=== PATIENT | female | born 1945 | race Caucasian/White ===

== ENCOUNTER 2017-08-13 11:52 | Observation (INO) | payer OTHER ==
[2017-08-13] MEDS ORDERED: ASPIRIN EC 81 MG TAB PO ONE (12:57)
[2017-08-13] MEDS ORDERED: PANTOPRAZOLE 40 MG INJ IVP ONE (12:57)
[2017-08-13] MEDS ORDERED: SODIUM CHLORIDE 0.9% 10ML INJ IV PRN (12:57)
[2017-08-13] MEDS ORDERED: METOPROLOL TAR 25 MG TAB PO ONE (12:57)
[2017-08-13] MEDS: NITROGLYCERIN 1 GM PKT TD SCH ×2 (13:11→18:00)
[2017-08-13 13:29] LABS: Absolute Lymphocytes (CBC) 1.7 K/uL (0.7-4.9); Absolute Monocytes 0.9 K/uL (0.1-1.3); Absolute Neutrophil 8.3 K/uL (1.8-8.0); Basophils % 0.5 % (0-1.3); Eosinophils % 3.3 % (0-4.4); Hematocrit 47.2 % (36.0-45.0); Lymphocytes % 15.3 % (15.3-44.8); MCH 29.8 pg (27.0-35.0); MCV 90.3 fL (80-100); MPV 9.2 fL (7.6-11.3); Monocytes % 7.6 % (3.3-12.3); RBC Red Blood Cell Count 5.22 M/uL (3.86-4.86)
[2017-08-13 13:32] LABS: Protime INR 1.06
[2017-08-13 13:39] LABS: Potassium 4.3 mEq/L (3.6-5.0)
[2017-08-13 13:42] LABS: Albumin 3.9 g/dL (3.2-5.5); Bilirubin Total 0.7 mg/dL (0.3-1.2); Protein, Total 7.1 g/dL (6.0-8.3)
[2017-08-13 13:47] LABS: CKMB Creatine Kinase MB 1.7 ng/ml (0.3-4.0)
[2017-08-13 14:17] LABS: Thyroid Stimulating Hormone 2.83 uIU/mL (0.34-5.60)
[2017-08-13 14:49] LABS: Urine Appearance CLEAR; Urine Bilirubin NEGATIVE (NEG); Urine Blood NEGATIVE (NEG); Urine Color YELLOW; Urine Glucose NEGATIVE (NEG); Urine Protein NEGATIVE (NEG); Urine Specific Gravity 1.015 (1.005-1.030); Urine Urobilinogen 0.2 mg/dL (0.2-1.0)
[2017-08-13] MEDS ORDERED: Morphine 2 MG/2 ML SYR IV PRN (14:56)
[2017-08-13] MEDS ORDERED: ONDANSETRON 4 MG/2 ML VIAL IV PRN (14:57)
[2017-08-13 14:59] LABS: Urine Microscopic Reflex NO UMIC
--- NOTE | 2017-08-13 14:59 | EKG ---
Test Date: 2017-08-13 Test Time: 12:48:54 Process Control Supervisor: CLEESTE MEASUREMENT RESULTS: Intervals: Rate: 89 MS: 158 QRSD: 86 QT: 386 QTc: 469 [place]: P: 55 MS: 158 QRS: 41 T: 44 INTERPRETIVE STATEMENTS: Normal sinus rhythm Cannot rule out Anterior infarct, age undetermined Abnormal ECG Compared to ECG 01/06/2013 15:51:20 Myocardial infarct finding now present Electronically Signed On 08-13-17 14:58:54 CDT by Zeke Tamayo
--- NOTE | 2017-08-13 15:06 | RAD REPORT ---
EXAM DESCRIPTION: RAD - Chest Single View - 08/13/2017 2:34 pm CLINICAL HISTORY: Chest pain COMPARISON: December 2012 TECHNIQUE: AP portable chest image was obtained 1423 hours . FINDINGS: Low lung volumes are noted. No peripheral mass or consolidation. Heart size is normal rang e. Central vasculature is mildly prominent. Trachea is midline. No measurable pleural effusion and no pneumothorax. No gross bony abnormality seen. No acute aortic findings suspected. IMPRESSION: No focal mass or consolidation. Central vasculature and lung markings are mildly prominent. Significant failure or volume overload do ubtful.
[2017-08-13] MEDS: METOPROLOL TAR 25 MG TAB PO SCH (21:00)
[2017-08-14] MEDS: NITROGLYCERIN 1 GM PKT TD SCH
--- NOTE | 2017-08-14 01:40 | HP ---
Date of Admission: 08/13/2017 Chief Complaint: Chest pain. History Of Present Illness: This is a 71-year-old female patient, who came into office today with co mplaints of chest pain. The patient started to have this complaints of chest pain on Saturday of last week, so that is like 4-5 days ago she started to have this chest pain, describing her chest pain as heaviness, tightness, pressure type of feeling in the center of her chest in the retrosternal area. No aggravating or relieving factor noted. No radiation of pain. The patient reported that the pain is more or less continuous. She tried taking aspirin, Zantac and none of those medication helped her . Denies any acid reflux feeling. No heartburn, indigestion. No trouble swallowing. No abdominal pain, nausea, vomiting. Feels like she may have low shortness of breath with this. No diaphoresis. No fever. No expectoration. No hemoptysis. After the patient was evaluated at the office, aston n was made to admit her to the hospital for further evaluation and management of this problem. Allergies: TO CEPHALEXIN CAUSING CRAWLING TYPE OF SENSATION UNDER SKIN AND DEMEROL CAUSING SPINNING SENSATION. Medications: Caltrate plus D 1 tablet 2 times a day, Centrum Silver 1 tablet daily, Flonase nasal sp ray 1 spray each nostril 2 times a day, losartan 50 mg p.o. daily, Zantac 150 mg daily as needed. Review of Systems: Cardiovascular: As mentioned above. All other systems reviewed and negative. Past Medical History: Significant for hypertension, osteoarthritis at multiple sites, fatty liver di sease, hyperlipidemia, type 2 diabetes mellitus, gastroesophageal reflux disease, allergic rhinitis. Past Surgical History: Hysterectomy and breast biopsy. Family History: Significant for hypertension, congestive heart failure, coronary artery disease, col on cancer. Social History: Negative for smoking or alcohol use. Physical Examination: Vital Signs: When she came into office today, height 65 inches, weight 239 pounds, blood pressure 14 6/80, pulse 91, respiratory rate 16, temperature 98 degrees Fahrenheit. General: Awake, alert, oriented, not in distress. HEENT: Head atraumatic, normocephalic. Conjunctivae nonerythematous. Sclerae white. Mouth, no thr ush or edema noted. Ears/Nose, no mass, lesion, discharge noted. Neck: Supple. No JVD, lymph nodes, bruit, thyromegaly noted. Lungs: Bilateral good equal air entry. Clear to auscultation. No rhonchi. No rales. Heart: Normal heart sounds, no murmur or gallop. Abdomen: Soft, bowel sounds normal. No guarding, rigidity, tenderness, mass, hepatosplenomegaly, di stention, or bruit noted. Extremities: No leg edema. No calf tenderness. Skin: No rash, ulcer, cellulitis. Lymphatics: No lymph node enlargement in neck, supraclavicular, infraclavicular region. Neuro: No focal neurological deficit. Chest: Unremarkable. External Genitalia: Deferred. Rectal: Deferred. Laboratory Data: White count 11.3, hemoglobin 15.6, platelets 200. PT, PTT normal. Sodium 137, pot assium 4.3, chloride 104, bicarb 26, BUN 18, creatinine 0.94, glucose 104. Liver function tests unre markable. BNP 31. TSH 2.83. Troponin less than 0.03. Urinalysis negative. Chest x-ray; no acute cardiopulmonary changes. EKG; normal sinus rhythm, no acute ST-T wave changes. Impression: 1.Chest pain. 2.Hypertension. 3.Hyperlipidemia. 4.Type 2 diabetes mellitus. 5.Osteoarthritis, multiple sites. 6.Gastroesophageal reflux disease. 7.Fatty liver disease. Plan: Admit the patient to hospital for further evaluation and management of this problem. We will go ahead and get serial cardiac enzymes. Home medications will be continued per order. We will give aspirin, IV Protonix. Nitroglycerin paste was ordered for her and metoprolol was started. Consult Cardiology. We will get echo with Doppler and Cardiolite stress test for tomorrow and I will also ge t abdominal ultrasound in the morning. Details and plan of treatment discussed with the patient. De tails were discussed with telephone installer, Dr. Tamayo. AQUILES/MODL Voice ID: [id number]
[2017-08-14] MEDS ORDERED: REGADENOSON 0.4 MG/5 ML SYR IV ONE (08:23)
[2017-08-14] MEDS ORDERED: HOME MED 1 EA UNK (Losartan Potassium [Losartan Potassium] 1 TAB) PO SCH (09:00)
[2017-08-14] MEDS ORDERED: PANTOPRAZOLE 40 MG INJ IVP SCH (09:00)
[2017-08-14] MEDS ORDERED: HOME MED 1 EA UNK (Ranitidine [Zantac*] 150 MG) PO SCH (09:00)
[2017-08-14] MEDS ORDERED: CALCIUM CARBONATE PO SCH (09:00)
[2017-08-14] MEDS ORDERED: ASPIRIN EC 81 MG TAB PO SCH (09:00)
[2017-08-14] MEDS ORDERED: VITAMIN D3 PO SCH (09:00)
[2017-08-14] MEDS ORDERED: HOME MED 1 EA UNK (Vitamin E [Vitamin E] 1,000 UNIT) PO SCH (09:00)
--- NOTE | 2017-08-14 09:21 | RAD REPORT ---
EXAM DESCRIPTION: US - Abdomen Exam Complete - 08/14/2017 7:42 am CLINICAL HISTORY: Chest pain, abdominal pain COMPARISON: None. FINDINGS: Gallbladder size is normal. No gallstones, wall thickening or pericholecystic fluid. Commo n bile duct is normal with no common duct stone identified. Liver and spleen are normal size. Liver s hows a coarse, increased echogenicity with poor sonographic penetrance. This is a pattern typical for fatty infiltration the limits assessment of focal liver lesions. No liver lesions are suspected. No focal splenic lesion. Pancreas is grossly normal but partially obscured by bowel. No hydronephrosis or suspicious mass in either kidney. A 3 x 1.5 cm cystic structure is present lower pole left kidney. This is favored to be a cyst rather than dilated calyx. Aorta is normal is size. No ascites or bulky lymphadenopathy. IMPRESSION: No gallbladder or biliary tree abnormality. Diffuse fatty infiltration of the liver. This limits ability to detect liver lesions. Pancreas is grossly normal but too obscured by bowel gas for complete assessment. Concerns for a panc reatic process can be addressed with contrast CT imaging.
[2017-08-14] MEDS: METOPROLOL TAR 25 MG TAB PO SCH (09:34)
--- NOTE | 2017-08-14 10:00 | RAD REPORT ---
EXAM DESCRIPTION: NM - Rest Stress Cardiac Imaging - 08/14/2017 9:48 am CLINICAL HISTORY: Chest pain COMPARISON: None. TECHNIQUE: The patient was administered 11 mCi of Tc 99m Sestamibi prior to resting SPECT imaging of the heart. The patient was then administered 31.2 mCi of Tc 99m Sestamibi following exercise or phar macologic stress. Multiplanar SPECT images were reviewed. FINDINGS: The end diastolic volume is 67 ml, the end systolic volume is 25 ml, and the ejection frac tion is 63 %. No stress-induced ischemic change seen. There is thinning at the apex that is believed to be normal v ariant for the patient rather than scarring. No measurable area of scarred left ventricular myocardiu m. IMPRESSION: No stress-induced ischemia or measurable area of scarring. Ventricular volumes and ejection fraction are normal range.
--- NOTE | 2017-08-14 10:13 | TREADPHA ---
DX: CHEST PAIN Date of Study: 08/14/2017 Ht: 5 5 Wt: 239 lb 0 oz Consulting Physician: JACKIE MEDICATIONS: ASPIRIN, ZOFRAN, LOPRESSOR, PROTONIX HISTORY: 71 YEAR OLD FEMALE HERE FOR CHEST PAIN. HISTORY OF HYPERTENSION. PHYSICIAL EXAMINATION: RESTING B.P.: 123/60 RESTING H.R.: 76 RESTING EKG: NORMAL PROTOCOL: LEXISCAN EXERCISE TIME: 3:30 B.P. AT PEAK STRESS: 76 IMPRESSION: LEXISCAN STRES TEST PERFORMED. CARDIOLITE INJECTED PER PROTOCOL. NO ARRHYTHMIAS. COMPLAINTS OF MID STERNAL HEAVINESS, FIVE OUT OF TEN ON PAIN SCALE DURING STRESS TEST WITH RELIEF STARTING POST TEST. SEE NUCLEAR MEDICINE REPORT. NON-DIAGNOSTIC ELECTROCARDIOGRAM WITH LEXISCAN STRESS.
[2017-08-14 11:17] LABS: A1c Component 0.63 mg/dL; Hemoglobin A1c 5.8 % (4-6.0)
--- NOTE | 2017-08-14 15:48 | ECHO ---
HEIGHT: 5 ft 5 in WEIGHT: 239 lb 0 oz DATE OF STUDY: 08/14/[address]: Zaheer Alas MD 2-DIMENSIONAL: YES M.MODE: YES DOPPLER: YES COLOR FLOW: YES TDS: YES PORTABLE: NO DEFINITY: NO BUBBLE STUDY: NO DIAGNOSIS: CHEST PAIN CARDIAC HISTORY: CATHERIZATION: NO SURGERY: NO PROSTHETIC VALVE: NO PACEMAKER: NO MEASUREMENTS (cm) DIASTOLIC (NORMALS) SYSTOLIC (NORMALS) IVSd 1.1 (0.6-1.2) LA Diam 3.2 (1.9-4.0) LVEF 74% LVIDd 4.2 (3.5-5.7) LVIDs 2.4 (2.0-3.5) %FS 43% LVPWd 1.3 (0.6-1.2) Ao Diam 3.2 (2.0-3.7) 2 DIMENSIONAL ASSESSMENT: RIGHT ATRIUM: NORMAL LEFT ATRIUM: NORMAL RIGHT VENTRICLE: NORMAL LEFT VENTRICLE: NORMAL TRICUSPID VALVE: NORMAL MITRAL VALVE: NORMAL PULMONIC VALVE: NORMAL AORTIC VALVE: NORMAL PERICARDIAL EFFUSION: NONE AORTIC ROOT: NORMAL LEFT VENTRICULAR WALL MOTION: NORMAL. DOPPLER/COLOR FLOW: NORMAL COMMENTS: NORMAL 2D ECHO WITH DOPPLER. TECHNOLOGIST: SHARATH KING
--- NOTE | 2017-08-15 18:50 | DS ---
Date of Discharge: 08/14/2017 Subjective: The patient was seen this morning for followup. She denied any chest pain complaints at all, and her symptoms that she presented with has completely resolved. Objective: Vital Signs: Reviewed. HEENT: Unremarkable. Lungs: Clear to auscultation. Heart: Sounds normal. Abdomen: Soft, bowel sounds normal. No guarding, rigidity, tenderness, or distention. Extremities: No leg edema. Hospital Course: This is a 71-year-old female patient who was admitted to hospital after she presented to office yesterday with chest pain complaint. Please see dictated H and P for more information. The patient was evaluated at the office. She was admitted to the hospital. Further evaluation in the hospital revealed normal cardiac enzymes, and MT was ruled out. CBC, chemistry were unremarkable. Today, the patient had an echocardiogram done, abdominal ultrasound, and stress test. Her ultrasound was unremarkable, echocardiogram was unremarkable, and stress test was negative for stress-induced ischemia. Yesterday, after she was admitted to hospital, she was given aspirin, IV Protonix, and nitro paste. Cardiology consultation was obtained. Her pain has completely resolved. We believe that her pain was atypical in nature, and I have requested her to follow up with her fieldwork coordinator, Dr. Wheeler, for consideration of EGD procedure, and the patient was advised to schedule her own appointment with Dr. Wheeler in next couple of weeks. The patient was also advised to come and see me for a followup at my office in 2 weeks. Discharge Medications: Continue all prior home medications except stop Zantac and start pantoprazole 40 mg p.o. daily 30 minutes before breakfast. Final Diagnoses: 1. Chest pain. 2. Hypertension. 3. Hyperlipidemia. 4. Type 2 diabetes mellitus. 5. Osteoarthritis, multiple sites. 6. Gastroesophageal reflux disease. 7. Fatty liver disease. AQUILES/MODL Voice ID: [id number] Report ID: [id number] LUCITA
== END 2017-08-14 15:35 | disposition home or self-care (01) ==
LOC: 2ND 12:10
PROVIDERS: ADMIT Internal Medicine; ATTEND Internal Medicine
DX: R07.9 Chest pain, unspecified (principal); K21.9 Gastro-esophageal reflux disease without esophagitis; I10 Essential (primary) hypertension; M19.90 Unspecified osteoarthritis, unspecified site; E78.5 Hyperlipidemia, unspecified; E11.9 Type 2 diabetes mellitus without complications
CPT/HCPCS: 36415; 71045; 76700; 78452; 80053; 81003; 82550; 82553; 83036; 83735; 83880; 84443; 84484; 85025; 85610; 85730; 93005; 93017; 93306; A9500; C9113; G0378; G0379; J2270; J2405; J2785

== ENCOUNTER 2018-11-22 03:03 | Emergency (ER) | payer OTHER ==
[2018-11-22] MEDS ORDERED: HYDROCODONE/APAP 5/325 MG TAB ONE (03:43)
--- NOTE | 2018-11-22 03:50 | EDPHYS ---
Physician Documentation [facility] Name: Nathaly Mclaughlin Age: 72 yrs Sex: Female : 1945 Arrival Date: 11/22/2018 Time: 03:05 Bed 7 Private MD: ED Physician Jorge Roy HPI: 11/22 03:44 This 72 yrs old Female presents to ER via Ambulatory with complaints of Rash gs - Possible Shingles. 03:44 The rash is located on the right lateral posterior chest and right lateral anterior gs chest. The rash can be described as crusted, papular. Onset: The symptoms/episode began/occurred 3 week(s) ago. Associated signs and symptoms: Pertinent positives: Pain. Severity of symptoms: At their worst the symptoms were severe in the emergency department the symptoms are unchanged. The patient has not experienced similar symptoms in the past. The patient has been recently seen by a physician: with similar presenting complaints, steroids. Historical: - Allergies: 03:29 Keflex; bb - Home Meds: 03:29 losartan oral oral [Active]; bb - PMHx: 03:29 Hypertension; bb - PSHx: 03:29 Hysterectomy; bb - Immunization history:: Adult Immunizations up to date. - Social history:: Smoking status: Patient/guardian denies using tobacco. - Ebola Screening: : No symptoms or risks identified at this time. ROS: 03:44 All other systems are negative. gs Exam: 03:44 Head/Face: Normocephalic, atraumatic. Eyes: Pupils equal round and reactive to light, gs extra-ocular motions intact. Lids and lashes normal. Conjunctiva and sclera are non-icteric and not injected. Cornea within normal limits. Periorbital areas with no swelling, redness, or edema. ENT: Nares patent. No nasal discharge, no septal abnormalities noted. Tympanic membranes are normal and external auditory canals are clear. Oropharynx with no redness, swelling, or masses, exudates, or evidence of obstruction, uvula midline. Mucous membranes moist. Neck: Trachea midline, no thyromegaly or masses palpated, and no cervical lymphadenopathy. Supple, full range of motion without nuchal rigidity, or vertebral point tenderness. No Meningismus. Chest/axilla: Normal chest wall appearance and motion. Nontender with no deformity. No lesions are appreciated. Cardiovascular: Regular rate and rhythm with a normal S1 and S2. No gallops, murmurs, or rubs. Normal PMI, no JVD. No pulse deficits. Respiratory: Lungs have equal breath sounds bilaterally, clear to auscultation and percussion. No rales, rhonchi or wheezes noted. No increased work of breathing, no retractions or nasal flaring. Abdomen/GI: Soft, non-tender, with normal bowel sounds. No distension or tympany. No guarding or rebound. No evidence of tenderness throughout. Back: No spinal tenderness. No costovertebral tenderness. Full range of motion. MS/ Extremity: Pulses equal, no cyanosis. Neurovascular intact. Full, normal range of motion. Neuro: Awake and alert, GCS 15, oriented to person, place, time, and situation. Cranial nerves II-XII grossly intact. Motor strength 5/5 in all extremities. Sensory grossly intact. Cerebellar exam normal. Normal gait. 03:44 Constitutional: The patient appears alert, awake. 03:44 Skin: rash a moderate rash is noted, rash can be described as papular, vesicular, zoster. Vital Signs: 03:29 BP 163 / 100; Pulse 88; Resp 16 S; Temp 98.1(O); Pulse Ox 96% on R/A; Weight 113.85 kg bb (R); Height 5 ft. 5 in. (165.10 cm) (R); Pain 9/10; 04:01 BP 141 / 81; Pulse 71; Resp 16; Pulse Ox 96% on R/A; ak1 03:29 Body Mass Index 41.77 (113.85 kg, 165.10 cm) bb MDM: 03:38 Patient medically screened. gs 03:44 Data reviewed: vital signs, nurses notes. Response to treatment: the patient's symptoms gs have mildly improved after treatment. Administered Medications: 03:45 Drug: [place] 5 mg-325 mg 1 tabs Route: PO; ak1 04:01 Follow up: Response: No adverse reaction; Medication administered at discharge. ak1 Disposition: 11/22/18 03:49 Discharged to Home. Impression: Zoster [herpes zoster]. - Condition is Stable. - Discharge Instructions: Shingles, [id number]. - Prescriptions for Valtrex 1 g Oral Tablet - take 1 tablet by ORAL route every 8 hours for 7 days; 21 tablet. Tylenol- Codeine #4 300-60 mg Oral Tablet - take 1 tablet by ORAL route every 6 hours As needed; 10 tablet. - Medication Reconciliation Form, Thank You Letter, Antibiotic Education, Prescription Opioid Use form. - Follow up: Private Physician; When: 2 - 3 days; Reason: Re-evaluation by your physician. Signatures: Raquel Reid RN RN bb Kayleigh Gama RN RN ak1 Jorge Roy MD MD gs Corrections: (The following items were deleted from the chart) 04:05 03:49 11/22/2018 03:49 Discharged to Home. Impression: Zoster [herpes zoster]. ak1 Condition is Stable. Forms are Medication Reconciliation Form, Thank You Letter, Antibiotic Education, Prescription Opioid Use. Follow up: Private Physician; When: 2 - 3 days; Reason: Re-evaluation by your physician. gs
--- NOTE | 2018-11-22 03:50 | ER ---
Nurse's Notes [facility] Name: Nathaly Mclaughlin Age: 72 yrs Sex: Female : 1945 Arrival Date: 11/22/2018 Time: 03:05 Bed 7 Private MD: Diagnosis: Zoster [herpes zoster] Presentation: 11/22 03:27 Presenting complaint: Patient states: she started having pain on Saturday then bb she broke out in a rash she went to her PCP who put her on steroids but the pain is getting worse and the rash is spreading. Transition of care: patient was not received from another setting of care. Onset of symptoms was November 19, 2018. Risk Assessment: Do you want to hurt yourself or someone else? Patient reports no desire to harm self or others. Initial Sepsis Screen: Does the patient meet any 2 criteria? No. Patient's initial sepsis screen is negative. Does the patient have a suspected source of infection? No. Patient's initial sepsis screen is negative. Care prior to arrival: None. 03:27 Method Of Arrival: Ambulatory bb 03:27 Acuity: SHILO 5 bb Historical: - Allergies: 03:29 Keflex; bb - Home Meds: 03:29 losartan oral oral [Active]; bb - PMHx: 03:29 Hypertension; bb - PSHx: 03:29 Hysterectomy; bb - Immunization history:: Adult Immunizations up to date. - Social history:: Smoking status: Patient/guardian denies using tobacco. - Ebola Screening: : No symptoms or risks identified at this time. Screenin:30 Abuse screen: Denies threats or abuse. Nutritional screening: No deficits noted. bb Tuberculosis screening: No symptoms or risk factors identified. Fall Risk None identified. Assessment: 03:30 General: Appears in no apparent distress. obese, Behavior is calm, cooperative, bb appropriate for age. Pain: Complains of pain in right arm Pain currently is 9 out of 10 on a pain scale. Neuro: Level of Consciousness is awake, alert, obeys commands, Oriented to person, place, time, situation. Cardiovascular: No deficits noted. Respiratory: Respiratory effort is even, unlabored. GI: No signs and/or symptoms were reported involving the gastrointestinal system. Derm: Rash noted that is vesicular. Musculoskeletal: Circulation, motion, and sensation intact. Vital Signs: 03:29 BP 163 / 100; Pulse 88; Resp 16 S; Temp 98.1(O); Pulse Ox 96% on R/A; Weight 113.85 kg bb (R); Height 5 ft. 5 in. (165.10 cm) (R); Pain 9/10; 04:01 BP 141 / 81; Pulse 71; Resp 16; Pulse Ox 96% on R/A; ak1 03:29 Body Mass Index 41.77 (113.85 kg, 165.10 cm) ED Course: 03:05 Patient arrived in ED. ds1 03:12 Jorge Roy MD is Attending Physician. gs 03:26 Kayleigh Gama, RN is Primary Nurse. ak1 03:29 Triage completed. bb 03:29 Arm band placed on Patient placed in an exam room, on a stretcher, on pulse oximetry. bb Family accompanied patient. 03:30 Patient has correct armband on for positive identification. Bed in low position. Call bb light in reach. Side rails up X 1. Adult w/ patient. Pulse ox on. NIBP on. 04:01 No provider procedures requiring assistance completed. Patient did not have IV access ak1 during this emergency room visit. Administered Medications: 03:45 Drug: [place] 5 mg-325 mg 1 tabs Route: PO; ak1 04:01 Follow up: Response: No adverse reaction; Medication administered at discharge. ak1 Outcome: 03:49 Discharge ordered by . 04:02 Discharged to home ambulatory, with family. ak1 04:02 Condition: good 04:02 Discharge instructions given to patient, family, Instructed on discharge instructions, follow up and referral plans. no drinking with medication, no driving heavy equipment, medication usage, Demonstrated understanding of instructions, follow-up care, medications, Prescriptions given X 2. 04:05 Patient left the ED. ak1 Signatures: Jenifer Verdugo ds1 Raquel Reid RN RN bb Kayleigh Gama RN RN ak1 Jorge Roy MD MD
[2018-11-22 04:39] VITALS: TEMP 98.1; O2SAT 96
[2018-11-22 04:41] VITALS: BP 141/81
== END 2018-11-22 04:05 | disposition home or self-care (01) ==
LOC: ER 03:03
DX: B02.9 Zoster without complications (principal); I10 Essential (primary) hypertension
CPT/HCPCS: 99283

== ENCOUNTER 2022-08-14 09:56 | Emergency (ER) | payer OTHER ==
--- OUTSIDE RECORDS SUMMARY | 2022-08-14 09:59 | XMS REPORT | Continuity of Care Document ---
:1945 Author Organization [facility] t Address [address] [address] Care Team Providers Name Role Phone Zaheer Alas Attending Clinician Unavailable Problems This patient has no known problems. Allergies, Adverse Reactions, Alerts This patient has no known allergies or adverse reactions. Medications This patient has no known medications. Procedures This patient has no known procedures. Encounters Start End Encounter Admission Attending Care Care Encounter Source Date/Time Date/Time Type Type Clinicians Facility Department ID 2022-08-02 Outpatient TATIANA Alas [facility] [id number] Common 07:38:00 Zaheer [id number] [id number] Common 09:21:01 Zaheer [id number] [facility] Results This patient has no known results.
[2022-08-14] MEDS ORDERED: LIDOCAINE 1% MPF 30 ML VIAL ONE (10:44)
[2022-08-14] MEDS ORDERED: FENTANYL CITR 100 MCG/2 ML ONE (10:45)
[2022-08-14] MEDS ORDERED: OXYCODONE HCL 5 MG TAB ONE (10:45)
--- NOTE | 2022-08-14 11:08 | RAD REPORT ---
EXAM DESCRIPTION: Shoulder Right 2 View - 08/14/2022 10:19 am CLINICAL HISTORY: DEFORMITY COMPARISON: No comparisons TECHNIQUE: Internal and external rotation views of the right shoulder were obtained. FINDINGS: Anteroinferior right shoulder dislocation. No evidence of displaced fracture. AC joint fredi ws mild degenerative change. No acute or suspicious findings. IMPRESSION: Anteroinferior right shoulder dislocation.
--- NOTE | 2022-08-14 11:08 | RAD REPORT ---
[facility] am CLINICAL HISTORY: fall COMPARISON: Chest Single View dated 09/30/2021; Chest Pa And Lat (2 Views) dated 11/19/2018; Chest Sing le View dated 08/13/2017; CHEST PA AND LAT 2 VIEW dated 01/06/2013 TECHNIQUE: Portable AP view of the chest. FINDINGS: The lungs show progressive central interstitial prominence. Development of patchy bibasila r airspace opacities. Decreased inspiratory effort limits evaluation. No pneumothorax or effusion. T he cardiomediastinal contours are unremarkable. IMPRESSION: Pattern concerning for pulmonary edema as above.
--- NOTE | 2022-08-14 11:23 | EDPHYS ---
Physician Documentation [facility] Name: Nathaly Mclaughlin Age: 76 yrs Sex: Female : 1945 Arrival Date: 08/14/2022 Time: 09:56 Bed 17 Private MD: Vijaya Alas C ED Physician Simon Lam HPI: 08/14 10:50 This 76 yrs old Female presents to ER via EMS with complaints of Fall Injury, bs3 Arm Injury, Shoulder Pain. 10:50 Patient notes that she was going on stairs she tripped and fell landing on her right bs3 shoulder she denies LOC confusion amnesia she denies any other injuries she was unable to get up but with assistance she has been able to walk denies chest pain shortness of breath or anything else bothering her this is never happened before her pain is moderate in intensity nonradiating located in the right shoulder. Historical: - Allergies: 10:32 Keflex; hb - PMHx: 10:32 Hypertension; hb ROS: 10:50 Constitutional: Negative for fever, chills bs3 10:50 All other systems are negative. Exam: 11:18 Constitutional: Patient moderate pain Head/Face: Normocephalic, atraumatic. Eyes: bs3 Pupils equal round and reactive to light, extra-ocular motions intact. Lids and lashes normal. ENT: mmm, no posterior phyarngeal erythema Neck: Trachea midline, no thyromegaly, no neck stiffness Chest/axilla: Normal chest wall appearance and motion. Nontender with no deformity. No lesions are appreciated. Cardiovascular: Regular rate and rhythm with a normal S1 and S2. symmetric pulses in upper extremities Respiratory: Lungs have equal breath sounds bilaterally, clear to auscultation, no respiratory distress Abdomen/GI: Soft, non-tender, no rebound or guarding Back: No spinal tenderness. No costovertebral tenderness. Full range of motion. MS/ Extremity: Right shoulder/arm has a deformity at the shoulder she is neurovascularly intact distally Neuro: Awake and alert, GCS 15, oriented to person, place, time, and situation. Cranial nerves II-XII grossly intact. Motor strength 5/5 in all extremities. Sensory grossly intact. Psych: Awake, alert, with orientation to person, place and time. Behavior, mood, and affect are within normal limits. Vital Signs: 11:50 BP 115 / 68; Pulse 79; Resp 16; Temp 98.1; Pulse Ox 100% on R/A; Pain 3/10; iw 11:50 Pain Scale: Adult iw Procedures: 11:18 Reduction: of the right shoulder, using manipulation, fares method, Immobilized with bs3 sling, Patient tolerated well. Post reduction film - reveals normal alignment. MDM: 10:00 Patient medically screened. bs3 11:18 Differential diagnosis: Patient with fracture versus dislocation Patient with a right bs3 shoulder anterior dislocation I did a intra-articular lidocaine block and reduced the shoulder without complication placed in sling advised follow-up with Ortho in 2 to 3 weeks. Data reviewed: vital signs, nurses notes. 11:18 ED course: will dc home. bs3 08/14 10:01 Order name: Shoulder Right (2 View) XRAY; Complete Time: 11:23 bs3 08/14 10:01 Order name: Chest Single View XRAY; Complete Time: 11:23 bs3 08/14 10:58 Order name: Shoulder Right (2 View) XRAY bs3 08/14 10:58 Order name: Sling bs3 Administered Medications: 10:40 Drug: oxyCODONE-acetaminophen PO (5 mg-325 mg) 1 tabs Route: PO; iw 11:03 Drug: fentaNYL (PF) IVP 50 mcg Route: IVP; Site: left antecubital; iw 12:01 Drug: Lidocaine Infiltration (1 %) 20 ml {Note: administered by Dr. Lam .} Volume: 20 iw ml; Route: Infiltration; Disposition Summary: 08/14/22 11:22 Discharge Ordered Location: Home bs3 Problem: new bs3 Symptoms: have improved bs3 Condition: Stable bs3 Diagnosis - Other dislocation of right shoulder joint bs3 Followup: bs3 - With: Rupert Shelley MD - When: 10 - 14 days - Reason: Re-evaluation by your physician Discharge Instructions: - Discharge Summary Sheet bs3 - Shoulder Dislocation, [id number] bs3 Forms: - Medication Reconciliation Form bs3 - Thank You Letter bs3 - Antibiotic Education bs3 - Prescription Opioid Use bs3 Signatures: Dispatcher [employer] EDTaylor Park RN RN iw Baxter, Heather, RN RN Simon Lam MD MD bs3 Corrections: (The following items were deleted from the chart) 10: 10:04 Humerus Right+RAD.RAD.BRZ ordered. EDMS EDMS 10: 10:04 Elbow Right 3 View+RAD.RAD.BRZ ordered. EDMS EDMS
--- NOTE | 2022-08-14 11:23 | ER ---
Nurse's Notes [facility] Name: Nathaly Mclaughlin Age: 76 yrs Sex: Female : 1945 Arrival Date: 08/14/2022 Time: 09:56 Bed 17 Private MD: Vijaya Alas C Diagnosis: Other dislocation of right shoulder joint Presentation: 08/14 10:00 Chief complaint: EMS states: Right shoulder and upper arm pain after mechanical fall hb from standing this morning. Negative LOC. 10:00 Coronavirus screen: At this time, the client does not indicate any symptoms associated hb with coronavirus-19. Ebola Screen: No symptoms or risks identified at this time. Initial Sepsis Screen: Does the patient meet any 2 criteria? No. Patient's initial sepsis screen is negative. Does the patient have a suspected source of infection? No. Patient's initial sepsis screen is negative. Risk Assessment: Do you want to hurt yourself or someone else? Patient reports no desire to harm self or others. Onset of symptoms was August 14, 2022. 10:00 Method Of Arrival: EMS: [facility] hb 10:00 Acuity: SHILO 3 hb Historical: - Allergies: 10:32 Keflex; hb - PMHx: 10:32 Hypertension; hb Screenin:01 [facility] ED Fall Risk Assessment (Adult) History of falling in the last 3 months, iw including since admission. Abuse screen: Denies threats or abuse. Denies injuries from another. Nutritional screening: No deficits noted. Tuberculosis screening: No symptoms or risk factors identified. Vital Signs: 11:50 BP 115 / 68; Pulse 79; Resp 16; Temp 98.1; Pulse Ox 100% on R/A; Pain 3/10; iw 11:50 Pain Scale: Adult iw ED Course: 09:59 Patient arrived in ED. mr 10:00 Simon Lam MD is Attending Physician. bs3 10:01 Vijaya Alas MD is Private Physician. mr 10:21 Shoulder Right (2 View) XRAY In Process Unspecified. EDMS 10:21 Chest Single View XRAY In Process Unspecified. EDMS 10:32 Triage completed. hb 10:40 Taylor Gottlieb, SERENE is Primary Nurse. iw 10:43 Inserted saline lock: 20 gauge in left antecubital area, using aseptic technique. zm 11:22 Rupert Shelley MD is Referral Physician. bs3 11:32 Shoulder Right (2 View) XRAY In Process Unspecified. EDMS 11:50 IV discontinued, intact, bleeding controlled, No redness/swelling at site. Pressure iw dressing applied. Administered Medications: 10:40 Drug: oxyCODONE-acetaminophen PO (5 mg-325 mg) 1 tabs Route: PO; iw 11:03 Drug: fentaNYL (PF) IVP 50 mcg Route: IVP; Site: left antecubital; iw 12:01 Drug: Lidocaine Infiltration (1 %) 20 ml {Note: administered by Dr. Lam .} Volume: 20 iw ml; Route: Infiltration; Outcome: 11:22 Discharge ordered by . bs3 11:59 Patient left the ED. iw Signatures: Dispatcher [employer] EDCA Suman Jennifer Taylor Sandhu, RN SERENE Alayna Alexander RN RN hb Martinez, Zaina zm Stein, Brandon, MD MD bs3
--- NOTE | 2022-08-14 11:40 | RAD REPORT ---
EXAM DESCRIPTION: Shoulder Right 2 View - 08/14/2022 11:30 am CLINICAL HISTORY: sp reduction COMPARISON: Shoulder Right 2 View dated 08/14/2022 TECHNIQUE: Internal and external rotation views of the right shoulder were obtained. FINDINGS: Improved alignment of the shoulder joint following closed reduction. No evidence of acute fractures. AC joint mild degenerative changes. No acute or suspicious findings. IMPRESSION: Improved alignment of the shoulder joint following closed reduction.
== END 2022-08-14 11:59 | disposition home or self-care (01) ==
LOC: ER 09:56
PROC: 0RSJXZZ Reposition Right Shoulder Joint, External Approach (ICD-10-PCS; principal; 2022-08-14)
DX: S43.084A Other dislocation of right shoulder joint, initial encounter (principal); I10 Essential (primary) hypertension; Z88.1 Allergy status to other antibiotic agents
CPT/HCPCS: 71045; 73030 ×2; 96374; 99284; 23650; J2001; J3010

== ENCOUNTER 2022-10-12 05:58 | Emergency (ER) | payer OTHER ==
--- OUTSIDE RECORDS SUMMARY | 2022-10-12 06:02 | XMS REPORT | Continuity of Care Document ---
:1945 Author Organization [facility] t Address [address] [address] Care Team Providers Name Role Phone Zaheer [...] 2022-08-02 Outpatient TATIANA Alas [facility] [id number] Common 07:38:00 Zaheer [id number] [facility] 2022-07-02 [facility] [id number] Common 09:21:01 Zaheer [id number] [facility] Results This patient has no known results.
[2022-10-12 06:36] LABS: Specific Gravity 1.021 (1.005-1.030); Urine Bacteria <20 /HPF (<20); Urine Bilirubin NEGATIVE (Negative); Urine Blood 3+ (OVER) (Negative); Urine Clarity Extremely Turbid (Clear); Urine Color Light-Orange (Yellow); Urine Glucose NEGATIVE (Negative); Urine Mucus Slight /HPF (None Seen); Urine Protein TRACE (Negative); Urine RBC >50 /HPF (None Seen); Urine Urobilinogen Normal (Normal); Urine WBC Clump Few /HPF (None Seen); Urine pH 5.5 (5.0-7.0)
--- NOTE | 2022-10-12 06:46 | ER ---
Nurse's Notes [facility] Name: Nathaly Mclaughlin Age: 76 yrs Sex: Female : 1945 Arrival Date: 10/12/2022 Time: 05:58 Bed 16 Private MD: Diagnosis: UTI/ Urinary tract infection, site not specified Presentation: 10/12 06:17 Chief complaint: Patient states: UTI symptoms since yesterday afternoon. Coronavirus kl screen: Vaccine status: Patient reports receiving the 2nd dose of the covid vaccine. Ebola Screen: Patient negative for fever greater than or equal to 101.5 degrees Fahrenheit, and additional compatible Ebola Virus Disease symptoms. Initial Sepsis Screen: Does the patient meet any 2 criteria? No. Patient's initial sepsis screen is negative. Does the patient have a suspected source of infection? No. Patient's initial sepsis screen is negative. Risk Assessment: Do you want to hurt yourself or someone else? Patient reports no desire to harm self or others. 06:17 Method Of Arrival: Ambulatory kl 06:17 Acuity: SHILO 4 kl 06:31 Onset of symptoms was October 11, 2022. ha1 Triage Assessment: 06:19 General: Appears in no apparent distress. Behavior is calm, cooperative. : Reports kl pain with urination, urinary frequency. - Immunization history:: Adult Immunizations unknown. - Social history:: Smoking status: unknown. Screenin:05 [facility] ED Fall Risk Assessment (Adult) History of falling in the last 3 months, ha1 including since admission Yes- single mechanical fall (1 pt) Confusion or Disorientation No (0 pts) Intoxicated or Sedated No (0 pts) Impaired Gait No (0 pts) Mobility Assist Device Used No (0 pt) Altered Elimination No (0 pt) Score/Fall Risk Level 0 - 2 = Low Risk Oriented to surroundings, Maintained a safe environment, Educated pt \T\ family on fall prevention, incl call for assistance when getting out of bed, Hourly rounding (assess needs \T\ fall precautionary measures) done. 06:29 Abuse screen: Denies threats or abuse. Denies injuries from another. Nutritional ha1 screening: No deficits noted. Tuberculosis screening: No symptoms or risk factors identified. Assessment: 06:05 General: Appears comfortable, Behavior is calm, cooperative. Pain: Complains of pain in ha1 pain with urination Pain does not radiate. Pain currently is 7 out of 10 on a pain scale. Neuro: Level of Consciousness is awake, alert, obeys commands, Oriented to person, place, time, situation. Cardiovascular: Patient's skin is warm and dry. Respiratory: Airway is patent Respiratory effort is even, unlabored, Respiratory pattern is regular, symmetrical. GI: Abdomen is round non-distended. : Urine is cloudy, Reports burning with urination, since yesterday. Derm: Skin is pink, warm \T\ dry. Musculoskeletal: Circulation, motion, and sensation intact. Range of motion: intact in all extremities. Vital Signs: 06:17 BP 150 / 82; Pulse 92; Resp 18; Temp 97.5(O); Pulse Ox 99% on R/A; Weight 112.94 kg; kl Height 5 ft. 5 in. ; Pain 0/10; 06:17 Body Mass Index 41.44 (112.94 kg, 165.1 cm) 06:17 Pain Scale: Adult ED Course: 06:02 Patient arrived in ED. [id number] 06:02 Chris Gotti MD is Attending Physician. rt 06:05 Patient has correct armband on for positive identification. Call light in reach. Side ha1 rails up X 1. Adult w/ patient. 06:16 Jane Torres, RN is Primary Nurse. ha1 06:19 Triage completed. kl 06:30 Arm band placed on right wrist. ha1 06:32 UAM Sent. ha1 07:10 No provider procedures requiring assistance completed. Patient did not have IV access ha1 during this emergency room visit. 07:11 Provided Education on: taking medication as ordered.. ha1 Administered Medications: No medications were administered Medication: 07:11 VIS not applicable for this client. ha1 Outcome: 06:46 Discharge ordered by . rt 07:10 Discharged to home ambulatory, with family. ha1 07:10 Condition: stable 07:10 Discharge instructions given to patient, family, Instructed on discharge instructions, follow up and referral plans. medication usage, Demonstrated understanding of instructions, follow-up care, medications, Prescriptions given X 1. 07:12 Patient left the ED. ha1 Addendum: 10/15/2022 09:15 Addendum: Culture Results: Positive urine culture. Bacteria is resistant to, has i w intermediate sensitivity, or is not tested against prescribed antibiotics. Report given to SHOAIB for further evaluation and then to stonework tracer for follow up with patient. Phone call Attempt #1 called in Augmentin 875 PO BID X 7 days , #14, no refills Prescription called-in to pharmacy of choice. [facility]. Signatures: Nasrin Porter RN Taylor Haider RN RN iw Jeffries, Jennifer jj6 Jane Torres RN RN ha1 Chris Gotti MD MD rt
--- NOTE | 2022-10-12 06:46 | EDPHYS ---
Physician Documentation [facility] Name: Nathaly Mclaughlin Age: 76 yrs Sex: Female : 1945 Arrival Date: 10/12/2022 Time: 05:58 Bed 16 Private MD: ED Physician Chris Gotti HPI: 10/12 06:15 This 76 yrs old Female presents to ER via Unassigned with complaints of Urinary rt Frequency, Pain With Urination. 06:15 Patient presents to the ED with 1 day of burning with urination as well as urinary rt frequency. She denies fever, chills, nausea, vomiting, flank pain. Denies other acute complaints at this time. Symptoms are mild in severity, no other aggravating or alleviating factors. - Immunization history:: Adult Immunizations unknown. - Social history:: Smoking status: unknown. ROS: 06:15 Constitutional: Negative for fever, chills, and weight loss, Cardiovascular: Negative rt for chest pain, palpitations, and edema, Respiratory: Negative for shortness of breath, cough, wheezing, and pleuritic chest pain, Abdomen/GI: Negative for abdominal pain, nausea, vomiting, diarrhea, and constipation, Back: Negative for injury and pain, MS/Extremity: Negative for injury and deformity, Skin: Negative for injury, rash, and discoloration, Neuro: Negative for headache, weakness, numbness, tingling, and seizure. 06:15 : Positive for urinary frequency, difficulty urinating. Exam: 06:15 Constitutional: This is a well developed, well nourished patient who is awake, alert, rt and in no acute distress. Head/Face: Normocephalic, atraumatic. Chest/axilla: Normal chest wall appearance and motion. Nontender with no deformity. No lesions are appreciated. Cardiovascular: Regular rate and rhythm with a normal S1 and S2. No gallops, murmurs, or rubs. Normal PMI, no JVD. No pulse deficits. Respiratory: Lungs have equal breath sounds bilaterally, clear to auscultation and percussion. No rales, rhonchi or wheezes noted. No increased work of breathing, no retractions or nasal flaring. Abdomen/GI: Soft, non-tender, with normal bowel sounds. No distension or tympany. No guarding or rebound. No evidence of tenderness throughout. Back: No spinal tenderness. No costovertebral tenderness. Full range of motion. Skin: Warm, dry with normal turgor. Normal color with no rashes, no lesions, and no evidence of cellulitis. MS/ Extremity: Pulses equal, no cyanosis. Neurovascular intact. Full, normal range of motion. Neuro: Awake and alert, GCS 15, oriented to person, place, time, and situation. Cranial nerves II-XII grossly intact. Motor strength 5/5 in all extremities. Sensory grossly intact. Cerebellar exam normal. Normal gait. Psych: Awake, alert, with orientation to person, place and time. Behavior, mood, and affect are within normal limits. Vital Signs: 06:17 BP 150 / 82; Pulse 92; Resp 18; Temp 97.5(O); Pulse Ox 99% on R/A; Weight 112.94 kg; kl Height 5 ft. 5 in. ; Pain 0/10; 06:17 Body Mass Index 41.44 (112.94 kg, 165.1 cm) kl 06:17 Pain Scale: Adult kl MDM: 06:10 Patient medically screened. rt 06:46 Differential diagnosis: Cystitis, pyelonephritis, sepsis. Data reviewed: vital signs, rt nurses notes, lab test result(s). Test considered but Not performed: CT: Patient has no signs or symptoms to suggest a pyelonephritis or ureterolithiasis, CT scan not indicated. Counseling: I had a detailed discussion with the patient and/or guardian regarding: the historical points, exam findings, and any diagnostic results supporting the discharge/admit diagnosis, lab results, the need for outpatient follow up, to return to the emergency department if symptoms worsen or persist or if there are any questions or concerns that arise at home. Response to treatment: There is no appreciated change of the patient's symptoms at this time. 10/12 06:15 Order name: UAM; Complete Time: 06:43 rt 10/12 06:39 Order name: Urine Culture EDMS Administered Medications: No medications were administered Disposition Summary: 10/12/22 06:46 Discharge Ordered Location: Home rt Problem: new rt Symptoms: are unchanged rt Condition: Stable rt Diagnosis - UTI/ Urinary tract infection, site not specified rt Followup: rt - With: Private Physician - When: 2 - 3 days - Reason: Discharge Instructions: - Discharge Summary Sheet rt - Urinary Tract Infection, Adult rt Forms: - Medication Reconciliation Form rt - Thank You Letter rt - Antibiotic Education rt - Prescription Opioid Use rt - Patient Portal Instructions rt Prescriptions: - Macrobid 100 mg Oral Capsule - take 1 capsule by ORAL route every 12 hours for 7 days; 14 capsule; Refills: 0, rt Product Selection Permitted Signatures: Dispatcher [employer] Jane Haynes RN RN ha1 Chris Gotti MD MD rt
[2022-10-12 07:17] VITALS: BP 150/82; TEMP 97.5; O2SAT 99
== END 2022-10-12 07:12 | disposition home or self-care (01) ==
LOC: ER 05:58
DX: N39.0 Urinary tract infection, site not specified (principal)
CPT/HCPCS: 81001; 87077; 87086; 87088; 87186; 99283